=== PATIENT | female | born 1960 | race Caucasian/White ===

== ENCOUNTER → 2023-10-17 15:03 | Outpatient (REF) | payer BC, SELFPAY ==
[2023-11-02 12:10] LABS: HPV, High Risk Not Detected; HPV, High Risk Source Cervical
== END ==
LOC: CPAP 15:03
PROVIDERS: ATTENDING PHYSICIAN Obstetrics & Gynecology Gynecology
DX: Z01.419 Encounter for gynecological examination (general) (routine) without abnormal findings (principal)
CPT/HCPCS: 87624; G0123

== ENCOUNTER → 2023-11-04 13:03 | Outpatient (REF) | payer BC, SELFPAY ==
[2023-11-06 20:26] LABS: C-Peptide 0.1 ng/mL (0.5-3.3)
== END ==
LOC: REG 13:03
PROVIDERS: ATTENDING PHYSICIAN Physician Assistant
DX: E10.9 Type 1 diabetes mellitus without complications (principal)
CPT/HCPCS: 36415; 84681

== ENCOUNTER → 2023-11-27 07:56 | Outpatient (REF) | payer BC, SELFPAY | LOC: WDC 07:56 | PROVIDERS: ATTENDING PHYSICIAN Obstetrics & Gynecology Gynecology; FAMILY PHYSICIAN Student in an Organized Health Care Education/Training Program | DX: Z12.31 Encounter for screening mammogram for malignant neoplasm of breast (principal) | CPT/HCPCS: 77063; 77067 ==

== ENCOUNTER 2023-12-05 17:11 | Outpatient (RCR) | payer BC, SELFPAY | END 2023-12-05 23:59 | disposition home or self-care (01) | LOC: RPT 17:11 | PROVIDERS: ATTENDING PHYSICIAN Student in an Organized Health Care Education/Training Program; FAMILY PHYSICIAN Student in an Organized Health Care Education/Training Program | DX: M48.062 Spinal stenosis, lumbar region with neurogenic claudication (principal); M54.16 Radiculopathy, lumbar region; Z73.6 Limitation of activities due to disability; R26.2 Difficulty in walking, not elsewhere classified; M62.81 Muscle weakness (generalized) | CPT/HCPCS: 97010; 97110; 97112; 97162 ==

== ENCOUNTER → 2024-01-03 | Outpatient (REF) | payer BC, SELFPAY | LOC: DHSLP | PROVIDERS: ATTENDING PHYSICIAN Physician Assistant; FAMILY PHYSICIAN Student in an Organized Health Care Education/Training Program | DX: G47.61 Periodic limb movement disorder (principal); G47.00 Insomnia, unspecified; R06.83 Snoring | CPT/HCPCS: 95810 ==

== ENCOUNTER 2024-01-07 16:22 | Outpatient (RCR) | payer BC, SELFPAY | END 2024-01-07 23:59 | disposition home or self-care (01) | LOC: RPT 16:22 | PROVIDERS: ATTENDING PHYSICIAN Student in an Organized Health Care Education/Training Program; FAMILY PHYSICIAN Student in an Organized Health Care Education/Training Program | DX: M48.062 Spinal stenosis, lumbar region with neurogenic claudication (principal); M54.16 Radiculopathy, lumbar region; Z73.6 Limitation of activities due to disability; R26.2 Difficulty in walking, not elsewhere classified; M62.81 Muscle weakness (generalized); R26.89 Other abnormalities of gait and mobility | CPT/HCPCS: 97010; 97110; 97112; 97140 ==

== ENCOUNTER 2024-01-16 16:42 | Outpatient (RCR) | payer BC, SELFPAY | END 2024-01-16 23:59 | disposition home or self-care (01) | LOC: RPT 16:42 | PROVIDERS: ATTENDING PHYSICIAN Student in an Organized Health Care Education/Training Program; FAMILY PHYSICIAN Student in an Organized Health Care Education/Training Program | DX: M48.062 Spinal stenosis, lumbar region with neurogenic claudication (principal); Z73.6 Limitation of activities due to disability; M54.16 Radiculopathy, lumbar region; M62.81 Muscle weakness (generalized); R26.2 Difficulty in walking, not elsewhere classified; R26.89 Other abnormalities of gait and mobility | CPT/HCPCS: 97010; 97110; 97112 ==

== ENCOUNTER → 2024-02-18 08:49 | Outpatient (REF) | payer BC, SELFPAY ==
[2024-02-18 09:23] LABS: % Basophils 0.5 % (0-2); % Eosinophils 2.5 % (0-6); % Immature Granulocytes 0.4 % (0-0.5); % Lymphocytes 30.2 % (20.5-51.1); % Neutrophils 59.4 % (42.2-75.2); Absolute Eosinophils 0.1 10^3/uL (0-0.7); Absolute Lymphocytes 1.7 10^3/uL (1.2-3.4); Absolute Monocytes 0.4 10^3/uL (0.1-0.6); Absolute Neutrophils 3.3 10^3/uL (1.4-6.5); Hematocrit 41.9 % (37.0-47.0); Hemoglobin 14.1 g/dL (12.0-16.0); Mean Corp Hgb Conc. 33.7 g/dL (33.0-37.0); Mean Corpuscular Hgb 29.2 pg (27.0-31.0); Mean Corpuscular Volume 86.7 fL (81.0-99.0); Nucleated Red Blood Cells % 0 %; Platelet Count 236 10^3/uL (130-400); Red Blood Cell Count 4.83 10^6/uL (4.20-5.40); Red Cell Dist. Width 12.8 % (11.5-14.5); White Blood Cell Count 5.6 10^3/uL (4.8-10.8)
[2024-02-18 09:42] LABS: Glycohemoglobin (HgbA1c) 6.3 % (4.0-5.6)
[2024-02-18 09:52] LABS: ALT (SGPT) 34 U/L (0-35); AST (SGOT) 35 U/L (14-36); Albumin 3.7 g/dl (3.5-5.0); Alkaline Phosphatase 127 U/L (38-126); Blood Urea Nitrogen 17 mg/dl (7-17); Calcium 9.4 mg/dl (8.4-10.2); Carbon Dioxide 27 mmol/L (22-30); Chloride 105 mmol/L (98-107); Glucose 159 mg/dl (70-99); HDL Cholesterol 63 mg/dl; LDL Cholesterol, Calculated 96 mg/dl; Potassium 4.5 mmol/L (3.5-5.1); Sodium 140 mmol/L (135-145); Total Bilirubin 1.4 mg/dl (0.2-1.3); Total Cholesterol 181 mg/dl (50-199); Total Protein 6.4 g/dl (6.3-8.2); Triglyceride 110 mg/dl (10-149); Very Low Density Lipoprotein 22 mg/dl (0-30); eGFR > 60.00
[2024-02-18 10:08] LABS: Free T4 1.06 ng/dl (0.78-2.19)
[2024-02-18 10:22] LABS: TSH 1.62 uIU/ml (0.47-4.68)
[2024-02-18 10:58] LABS: Microalbumin, Random Urine 1.3 mg/dl (0.6-1.7)
== END ==
LOC: REG 08:49
PROVIDERS: ATTENDING PHYSICIAN Physician Assistant
DX: E10.9 Type 1 diabetes mellitus without complications (principal); M54.42 Lumbago with sciatica, left side; E78.5 Hyperlipidemia, unspecified; E03.9 Hypothyroidism, unspecified; Z85.3 Personal history of malignant neoplasm of breast
CPT/HCPCS: 36415; 80053; 80061; 82043; 83036; 84439; 84443; 85025

== ENCOUNTER 2024-03-05 16:50 | Outpatient (RCR) | payer BC, SELFPAY | END 2024-03-05 23:59 | disposition home or self-care (01) | LOC: RPT 16:50 | PROVIDERS: ATTENDING PHYSICIAN Student in an Organized Health Care Education/Training Program; FAMILY PHYSICIAN Student in an Organized Health Care Education/Training Program | DX: M48.062 Spinal stenosis, lumbar region with neurogenic claudication (principal); M54.16 Radiculopathy, lumbar region; Z73.6 Limitation of activities due to disability; M62.81 Muscle weakness (generalized); R26.2 Difficulty in walking, not elsewhere classified; R26.89 Other abnormalities of gait and mobility | CPT/HCPCS: 97110; 97112; 97140; 97530 ==

== ENCOUNTER 2024-03-31 17:20 | Outpatient (RCR) | payer BC, SELFPAY | END 2024-03-31 23:59 | disposition home or self-care (01) | LOC: RPT 17:20 | PROVIDERS: ATTENDING PHYSICIAN Student in an Organized Health Care Education/Training Program; FAMILY PHYSICIAN Student in an Organized Health Care Education/Training Program | DX: M48.062 Spinal stenosis, lumbar region with neurogenic claudication (principal); M54.16 Radiculopathy, lumbar region; Z73.6 Limitation of activities due to disability; M62.81 Muscle weakness (generalized); R26.2 Difficulty in walking, not elsewhere classified; R26.89 Other abnormalities of gait and mobility | CPT/HCPCS: 97110; 97112; 97140 ==

== ENCOUNTER → 2024-04-03 08:46 | Outpatient (REF) | payer BC, SELFPAY | LOC: CLAB 08:46 | PROVIDERS: ATTENDING PHYSICIAN Obstetrics & Gynecology Gynecology | DX: N95.0 Postmenopausal bleeding (principal) | CPT/HCPCS: 88305 ==

== ENCOUNTER → 2024-04-08 09:42 | Outpatient (REF) | payer BC, SELFPAY ==
[2024-04-08 10:35] LABS: % Basophils 0.4 % (0-2); % Eosinophils 1.2 % (0-6); % Immature Granulocytes 0.2 % (0-0.5); % Lymphocytes 21.6 % (20.5-51.1); % Monocytes 6.7 % (1.7-9.3); % Neutrophils 69.9 % (42.2-75.2); Absolute Eosinophils 0.1 10^3/uL (0-0.7); Absolute Lymphocytes 1.8 10^3/uL (1.2-3.4); Absolute Monocytes 0.6 10^3/uL (0.1-0.6); Absolute Neutrophils 5.7 10^3/uL (1.4-6.5); Hematocrit 39.1 % (37.0-47.0); Hemoglobin 13.7 g/dL (12.0-16.0); Mean Corpuscular Hgb 30.8 pg (27.0-31.0); Mean Corpuscular Volume 87.9 fL (81.0-99.0); Mean Platelet Volume 10.1 fL (7.4-10.4); Nucleated Red Blood Cells % 0 %; Platelet Count 216 10^3/uL (130-400); Red Blood Cell Count 4.45 10^6/uL (4.20-5.40); Red Cell Dist. Width 13.1 % (11.5-14.5); White Blood Cell Count 8.2 10^3/uL (4.8-10.8)
[2024-04-08 11:33] LABS: ALT (SGPT) 35 U/L (0-35); AST (SGOT) 29 U/L (14-36); Albumin 3.6 g/dl (3.5-5.0); Alkaline Phosphatase 106 U/L (38-126); Blood Urea Nitrogen 16 mg/dl (7-17); Carbon Dioxide 28 mmol/L (22-30); Chloride 105 mmol/L (98-107); Glucose 93 mg/dl (70-99); Sodium 137 mmol/L (135-145); Total Bilirubin 1.4 mg/dl (0.2-1.3); Total Protein 6.1 g/dl (6.3-8.2); eGFR > 60.00
[2024-04-09 18:37] LABS: CA 27-29 9.5 U/mL (<=39.0)
== END ==
LOC: REG 09:42
PROVIDERS: ATTENDING PHYSICIAN Internal Medicine Hematology & Oncology; FAMILY PHYSICIAN Student in an Organized Health Care Education/Training Program
DX: C50.112 Malignant neoplasm of central portion of left female breast (principal); D70.9 Neutropenia, unspecified
CPT/HCPCS: 36415; 80053; 85025; 86300

== ENCOUNTER → 2024-04-28 10:05 | Outpatient (REF) | payer BC, SELFPAY | LOC: RAD 10:05 | PROVIDERS: ATTENDING PHYSICIAN Obstetrics & Gynecology Gynecology; FAMILY PHYSICIAN Student in an Organized Health Care Education/Training Program | DX: N95.0 Postmenopausal bleeding (principal) | CPT/HCPCS: 76830; 76856 ==

== ENCOUNTER → 2024-05-20 06:33 | Day surgery (SDC) | payer BC, SELFPAY ==
[2024-05-20 07:26] LABS: Glucose - Point of Care 81 mg/dl (70-99)
== END ==
LOC: GI 06:33
PROVIDERS: ATTENDING PHYSICIAN Specialist
DX: Z12.11 Encounter for screening for malignant neoplasm of colon (principal); K63.5 Polyp of colon
CPT/HCPCS: 45380; 88305; 82962

== ENCOUNTER 2024-08-26 08:17 | Emergency (ER) | payer BC, SELFPAY ==
[2024-08-26 08:20] VITALS: BP 127/79
--- NOTE | 2024-08-26 08:45 | ED.GENMED ---
History of Present Illness
General
Chief Complaint: Musculo-Skeletal Complaint
Source: patient
Exam Limitations: none
Time Seen by Provider: 08/26/24 08:39
History of Present Illness
History of Present Illness:
See MDM
Past History
Past History
ED Past Medical History: Cancer (Left breast), IDDM, Hypothyroidism, Other (Migraine headaches, lymphedema left upper extremity) and Other
ED Past Surgical History: Appendectomy, Orthopedic and Other (Left breast lumpectomy September 2015)
Social History
Tobacco: Non-smoker
Alcohol: Occasional
Personal:
Living: with family
Employment: Employed
Family History
Family History: Other (Noncontributory)
Phy Exam
Physical Exam
Physical Exam:
See MDM
Course
Orders/Labs/Results
Orders:
Orders
08/26/24 08:23
Shoulder, Left, Trauma CR [CR Shoulder, Trauma - Left] Urgent
Comment:
Reason For Exam: fall injury
08/26/24 08:44
Sling Left-Treatment ONCE
Ketorolac [Toradol] 30 mg IM NOW STA
Vital Signs
Initial and Last Documented VS:
Initial Vital Signs
Temp Pulse Resp BP Pulse Ox
97.8 F 89 16 127/79 98
08/26/24 08:20 08/26/24 08:20 08/26/24 08:20 08/26/24 08:20 08/26/24 08:20
Last Documented Vital Signs
Temp Pulse Resp BP Pulse Ox
97.8 F 89 16 127/79 98
08/26/24 08:20 08/26/24 08:20 08/26/24 08:20 08/26/24 08:20 08/26/24 08:20
MDM/Problems Addressed
Differential Diagnosis Includes:
HPI and MDM Narrative:
63-year-old female presenting with left shoulder injury. Patient fell coming out of her house. She fell on her left shoulder and she hit her face and her right knee. Patient is unconcerned about her facial injury or her right knee injury. She is
more concerned about her left shoulder. She is having trouble moving her shoulder but denies numbness or tingling.
X-ray was done prior to my evaluation. There appears to be an impacted humeral neck fracture. There is no dislocation. She is neurovascularly intact distally. Will place in shoulder sling. Will refer to orthopedics
Physical exam
General: Well appearing and non-toxic
HEENT: protecting airway
Neck: appears supple
CV: No evidence of cyanosis
Resp: No accessory muscle use
Abd: Non-distended
Extremities: Tenderness to proximal left shoulder. Lymphedema noted in that arm. Distal extremity neurovascularly intact. Mild tenderness to right knee but range of motion intact
Neuro: alert
Psych: Normal affect
Skin: Intact
Problems Addressed including Acute and Chronic Conditions affecting care:
1. Humeral neck fracture
Acuity: acute
Prognosis: stable
Details: Will place in sling. Will refer to orthopedics and discussed pain control
2. [ ]
Acuity: acute
Prognosis: stable
Details:
3. [ ]
Acuity: acute
Prognosis: stable
Details:
4. [ ]
Acuity: acute
Prognosis: stable
Details:
5. [ ]
Acuity:
Prognosis:
Details:
Updates
Differential Diagnosis (but not limited to): Shoulder contusion, humeral neck fracture
Testing considered: Knee x-ray but there is no significant tenderness to suspect fracture
Drug therapy (if applicable): OTC meds, please see d/c instruction regarding Rx drugs
Amount and/or Complexity of Data Reviewed
Clinical info obtained from: Patient
External data reviewed: N/A
Labs I independently reviewed (but not limited to): [ ]
Radiology: X-ray independently reviewed: Left shoulder x-ray concerning for humeral neck fracture
Pulse Ox: not hypoxic
EKG independently reviewed: N/A
Sand Hauler: N/A
Critical Care: N/A
Risk of Complication:
Social Determinants of health: Good social support
Discussed with other providers: N/A
Escalation of Care includes Admit/Obs: After being observed in the Emergency Department, pt stable for discharge.
Occasional wrong word or 'sound a like' substitutions may have occurred due to the inherent limitations of voice recognition software. Read the chart carefully and recognize, using context, where substitutions have occurred.
*Critical Care Note
Total Time (30-74mins, 75-104mins- exclusive of procedures): Not Applicable
ED Attending Note
-
Portions of this chart may have been created with voice recognition software.� Occasional wrong word or��sound alike� substitutions may have occurred due to the inherent limitations of voice recognition software.
Discharge Plan
Departure
Patient Disposition: Home (Routine Discharge)
Date of Disposition: 08/26/24
Time of Disposition: 08:52
Patient with high blood pressure during this ER visit?: No
Discharge Problem:
Fracture of neck of humerus
Instructions: Shoulder or upper arm fracture
Prescriptions:
New
oxycodone 5 mg tablet
5 mg PO Q8H PRN (Reason: Pain) Qty: 14 0RF
No Action
multivitamin [Oau-Rhnbqz-Qxqfu] 1 EACH tablet
1 ea PO DAILY
atorvastatin 20 MG tablet
20 mg PO QPM
Potassium-99 99 MG tablet
99 mg PO HS
levothyroxine 150 MCG tablet
150 mcg PO DAILY
lisinopril 2.5 MG tablet
2.5 mg PO DAILY
magnesium 200 MG tablet
133 mg PO DAILY
cholecalciferol (vitamin D3) [Vitamin D3] 2,000 UNIT capsule
2,000 unit PO DAILY
insulin lispro [Humalog U-100 Insulin] 100 UNIT/ML solution
0 unit SC .PUMP
Patient Comments:
pump dictates insulin amt based on serum glucose
loratadine 10 MG tablet
10 mg PO DAILY
anastrozole 1 MG tablet
1 mg PO DAILY
melatonin 1 MG tablet
5 mg PO HS
pseudoephedrine HCl 60 MG tablet
30 mg PO DAILY
Zync
5 mg PO DAILY
erythromycin 500 mg Tablet
500 mg PO TID
famotidine 20 mg Tablet
20 mg PO DAILY
Referrals:
Adriano Blunt MD [Active] -
Activity Restrictions/Additional Instructions:
Please return for any worsening symptoms.
You may return at any time if you have further concerns.
Please make an appointment to see the orthopedist.
You were given a prescription for narcotics. If you require this pain medicine, please take a daily [id number] stool softener to avoid constipation.
Thank you for choosing [facility].
Interventions
Interventions:
*Risk Screen - Suicide Last Done: 08/26/24 08:21
*Neglect/Abuse Screening Last Done: 08/26/24 08:21
*ED COVID-19 Vaccine History Last Done: 08/26/24 08:41
ED-Musculoskeletal Assessment Last Done: 08/26/24 08:41
Discharge Date and Time
Print Language: [id number]
[2024-08-26] MEDS: TORADOL 30 MG IM (09:00)
== END 2024-08-26 09:42 | disposition home or self-care (01) ==
LOC: EMR 08:17
PROVIDERS: EMERGENCY PHYSICIAN Student in an Organized Health Care Education/Training Program; FAMILY PHYSICIAN Student in an Organized Health Care Education/Training Program
DX: S42.212A Unspecified displaced fracture of surgical neck of left humerus, initial encounter for closed fracture (principal); W19.XXXA Unspecified fall, initial encounter; E03.9 Hypothyroidism, unspecified; E11.9 Type 2 diabetes mellitus without complications; Z90.49 Acquired absence of other specified parts of digestive tract
CPT/HCPCS: 99283; 96372; 73030

== ENCOUNTER 2024-10-09 15:14 | Outpatient (RCR) | payer BC, SELFPAY | END 2024-10-09 23:59 | disposition home or self-care (01) | LOC: RPT 15:14 | PROVIDERS: ATTENDING PHYSICIAN Physician Assistant Surgical; FAMILY PHYSICIAN Student in an Organized Health Care Education/Training Program | DX: S42.202D Unspecified fracture of upper end of left humerus, subsequent encounter for fracture with routine healing (principal); Z73.6 Limitation of activities due to disability; M62.81 Muscle weakness (generalized); W00.0XXD Fall on same level due to ice and snow, subsequent encounter; Z85.3 Personal history of malignant neoplasm of breast | CPT/HCPCS: 97010; 97110; 97112; 97140; 97162; 97530 ==

== ENCOUNTER → 2024-10-20 08:32 | Outpatient (REF) | payer BC, SELFPAY ==
[2024-10-20 11:02] LABS: % Basophils 0.8 % (0-2); % Eosinophils 2.3 % (0-6); % Immature Granulocytes 0.5 % (0-0.5); % Lymphocytes 28.6 % (20.5-51.1); % Neutrophils 59.8 % (42.2-75.2); Absolute Basophils 0.1 10^3/uL (0-0.2); Absolute Eosinophils 0.2 10^3/uL (0-0.7); Absolute Lymphocytes 1.8 10^3/uL (1.2-3.4); Absolute Monocytes 0.5 10^3/uL (0.1-0.6); Absolute Neutrophils 3.8 10^3/uL (1.4-6.5); Hematocrit 40.7 % (37.0-47.0); Hemoglobin 13.4 g/dL (12.0-16.0); Mean Corp Hgb Conc. 32.9 g/dL (33.0-37.0); Mean Corpuscular Hgb 29.7 pg (27.0-31.0); Mean Corpuscular Volume 90.2 fL (81.0-99.0); Mean Platelet Volume 10.3 fL (7.4-10.4); Nucleated Red Blood Cells % 0 %; Platelet Count 246 10^3/uL (130-400); Red Blood Cell Count 4.51 10^6/uL (4.20-5.40); Red Cell Dist. Width 13.4 % (11.5-14.5); White Blood Cell Count 6.4 10^3/uL (4.8-10.8)
[2024-10-20 12:01] LABS: ALT (SGPT) 43 U/L (0-35); AST (SGOT) 38 U/L (14-36); Albumin 3.7 g/dl (3.5-5.0); Alkaline Phosphatase 144 U/L (38-126); Blood Urea Nitrogen 20 mg/dl (7-17); Calcium 9.1 mg/dl (8.4-10.2); Carbon Dioxide 27 mmol/L (22-30); Chloride 104 mmol/L (98-107); Glucose 183 mg/dl (70-99); Potassium 4.8 mmol/L (3.5-5.1); Sodium 138 mmol/L (135-145); Total Bilirubin 0.9 mg/dl (0.2-1.3); Total Protein 6.2 g/dl (6.3-8.2); eGFR > 60.00
[2024-10-21 14:47] LABS: CA 27-29 11.9 U/mL (<=39.0)
== END ==
LOC: REG 08:32
PROVIDERS: ATTENDING PHYSICIAN Internal Medicine Hematology & Oncology; FAMILY PHYSICIAN Student in an Organized Health Care Education/Training Program
DX: C50.112 Malignant neoplasm of central portion of left female breast (principal); D70.9 Neutropenia, unspecified
CPT/HCPCS: 36415; 80053; 85025; 86300

== ENCOUNTER 2024-11-05 15:26 | Outpatient (RCR) | payer BC, SELFPAY | END 2024-11-05 23:59 | disposition home or self-care (01) | LOC: RPT 15:26 | PROVIDERS: ATTENDING PHYSICIAN Physician Assistant Surgical; FAMILY PHYSICIAN Student in an Organized Health Care Education/Training Program | DX: S42.202D Unspecified fracture of upper end of left humerus, subsequent encounter for fracture with routine healing (principal); Z73.6 Limitation of activities due to disability; M62.81 Muscle weakness (generalized); W00.0XXD Fall on same level due to ice and snow, subsequent encounter; W18.39XD Other fall on same level, subsequent encounter; Z85.3 Personal history of malignant neoplasm of breast | CPT/HCPCS: 97010; 97110; 97112; 97140 ==

== ENCOUNTER → 2024-12-01 07:52 | Outpatient (REF) | payer BC, SELFPAY | LOC: WDC 07:52 | PROVIDERS: ATTENDING PHYSICIAN Obstetrics & Gynecology Gynecology; FAMILY PHYSICIAN Student in an Organized Health Care Education/Training Program | DX: Z12.31 Encounter for screening mammogram for malignant neoplasm of breast (principal) | CPT/HCPCS: 77063; 77067 ==

== ENCOUNTER 2024-12-07 15:30 | Outpatient (RCR) | payer BC, SELFPAY | END 2024-12-07 23:59 | disposition home or self-care (01) | LOC: RPT 15:30 | PROVIDERS: ATTENDING PHYSICIAN Physician Assistant Surgical; FAMILY PHYSICIAN Student in an Organized Health Care Education/Training Program | DX: S42.202D Unspecified fracture of upper end of left humerus, subsequent encounter for fracture with routine healing (principal); Z73.6 Limitation of activities due to disability; M62.81 Muscle weakness (generalized); W00.0XXD Fall on same level due to ice and snow, subsequent encounter; W18.39XD Other fall on same level, subsequent encounter; Z85.3 Personal history of malignant neoplasm of breast | CPT/HCPCS: 97010; 97110; 97112; 97140 ==

== ENCOUNTER → 2024-12-24 09:35 | Outpatient (REF) | payer BC, SELFPAY ==
[2024-12-24 11:31] LABS: ALT (SGPT) 36 U/L (0-35); AST (SGOT) 29 U/L (14-36); Albumin 3.6 g/dl (3.5-5.0); Alkaline Phosphatase 120 U/L (38-126); Blood Urea Nitrogen 19 mg/dl (7-17); Calcium 9.2 mg/dl (8.4-10.2); Carbon Dioxide 29 mmol/L (22-30); Chloride 106 mmol/L (98-107); Direct Bilirubin 0.2 mg/dl (0.0-0.4); Glucose 102 mg/dl (70-99); HDL Cholesterol 65 mg/dl; LDL Cholesterol, Calculated 73 mg/dl; Potassium 4.4 mmol/L (3.5-5.1); Sodium 140 mmol/L (135-145); Total Bilirubin 1.2 mg/dl (0.2-1.3); Total Cholesterol 152 mg/dl (50-199); Total Protein 6.2 g/dl (6.3-8.2); Triglyceride 74 mg/dl (10-149); Very Low Density Lipoprotein 14 mg/dl (0-30); eGFR > 60.00
[2024-12-24 11:32] LABS: Glycohemoglobin (HgbA1c) 6.8 % (4.0-5.6)
== END ==
LOC: REG 09:35
PROVIDERS: ATTENDING PHYSICIAN Nurse Practitioner Adult Health; FAMILY PHYSICIAN Student in an Organized Health Care Education/Training Program; REFERRING PHYSICIAN Internal Medicine Hematology & Oncology
DX: E78.5 Hyperlipidemia, unspecified (principal); E10.9 Type 1 diabetes mellitus without complications; C50.112 Malignant neoplasm of central portion of left female breast; D70.9 Neutropenia, unspecified
CPT/HCPCS: 36415; 80053; 80061; 82248; 83036

== ENCOUNTER 2025-01-05 15:54 | Outpatient (RCR) | payer BC, SELFPAY | END 2025-01-05 23:59 | disposition home or self-care (01) | LOC: RPT 15:54 | PROVIDERS: ATTENDING PHYSICIAN Physician Assistant Surgical; FAMILY PHYSICIAN Student in an Organized Health Care Education/Training Program | DX: S42.202D Unspecified fracture of upper end of left humerus, subsequent encounter for fracture with routine healing (principal); Z73.6 Limitation of activities due to disability; M62.81 Muscle weakness (generalized); W00.0XXD Fall on same level due to ice and snow, subsequent encounter; Z85.3 Personal history of malignant neoplasm of breast; W18.39XD Other fall on same level, subsequent encounter | CPT/HCPCS: 97110; 97112; 97140 ==

== ENCOUNTER → 2025-01-09 07:55 | Outpatient (REF) | payer BC, SELFPAY | LOC: MRI 3T 07:55 | PROVIDERS: ATTENDING PHYSICIAN Physician Assistant Surgical; FAMILY PHYSICIAN Student in an Organized Health Care Education/Training Program | DX: M70.61 Trochanteric bursitis, right hip (principal); M76.01 Gluteal tendinitis, right hip | CPT/HCPCS: 73721 ==

== ENCOUNTER 2025-01-11 15:39 | Outpatient (RCR) | payer BC, SELFPAY | END 2025-01-12 07:36 | disposition home or self-care (01) | LOC: RPT 15:39 | PROVIDERS: ATTENDING PHYSICIAN Physician Assistant Surgical; FAMILY PHYSICIAN Student in an Organized Health Care Education/Training Program | DX: S42.202D Unspecified fracture of upper end of left humerus, subsequent encounter for fracture with routine healing (principal); Z73.6 Limitation of activities due to disability; M62.81 Muscle weakness (generalized); W00.0XXD Fall on same level due to ice and snow, subsequent encounter; Z85.3 Personal history of malignant neoplasm of breast; W18.39XD Other fall on same level, subsequent encounter | CPT/HCPCS: 97010; 97112; 97140 ==

== ENCOUNTER 2025-03-01 13:17 | Outpatient (RCR) | payer BC, SELFPAY | END 2025-03-01 23:59 | disposition home or self-care (01) | LOC: RPT 13:17 | PROVIDERS: ATTENDING PHYSICIAN Physician Assistant Surgical; FAMILY PHYSICIAN Student in an Organized Health Care Education/Training Program | DX: M16.0 Bilateral primary osteoarthritis of hip (principal); M70.61 Trochanteric bursitis, right hip; M76.01 Gluteal tendinitis, right hip; Z73.6 Limitation of activities due to disability; M25.551 Pain in right hip | CPT/HCPCS: 97110; 97112; 97140; 97161 ==

== ENCOUNTER 2025-03-16 16:15 | Outpatient (RCR) | payer BC, SELFPAY | END 2025-03-16 23:59 | disposition home or self-care (01) | LOC: RPT 16:15 | PROVIDERS: ATTENDING PHYSICIAN Physician Assistant Surgical; FAMILY PHYSICIAN Student in an Organized Health Care Education/Training Program | DX: M16.0 Bilateral primary osteoarthritis of hip (principal); M70.61 Trochanteric bursitis, right hip; M76.01 Gluteal tendinitis, right hip; Z73.6 Limitation of activities due to disability; M25.551 Pain in right hip | CPT/HCPCS: 97110 ==

== ENCOUNTER → 2025-04-16 10:51 | Outpatient (REF) | payer BC, SELFPAY ==
[2025-04-16 12:22] LABS: Hematocrit 41.5 % (37.0-47.0); Hemoglobin 13.7 g/dL (12.0-16.0); Mean Corp Hgb Conc. 33.0 g/dL (33.0-37.0); Mean Corpuscular Volume 90.4 fL (81.0-99.0); Nucleated Red Blood Cells % 0 %; Platelet Count 246 10^3/uL (130-400); Red Cell Dist. Width 13.3 % (11.5-14.5)
[2025-04-16 14:33] LABS: ALT (SGPT) 68 U/L (0-35); AST (SGOT) 45 U/L (14-36); Albumin 3.8 g/dl (3.5-5.0); Alkaline Phosphatase 124 U/L (38-126); Blood Urea Nitrogen 15 mg/dl (7-17); Calcium 9.2 mg/dl (8.4-10.2); Carbon Dioxide 28 mmol/L (22-30); Chloride 106 mmol/L (98-107); Glucose 132 mg/dl (70-99); Potassium 4.4 mmol/L (3.5-5.1); Sodium 138 mmol/L (135-145); Total Protein 6.4 g/dl (6.3-8.2); eGFR > 60.00
[2025-04-19 03:44] LABS: CA 27-29 14.2 U/mL (<=39.0)
== END ==
LOC: REG 10:51
PROVIDERS: ATTENDING PHYSICIAN Internal Medicine Hematology & Oncology; FAMILY PHYSICIAN Student in an Organized Health Care Education/Training Program
DX: C50.112 Malignant neoplasm of central portion of left female breast (principal); D70.9 Neutropenia, unspecified
CPT/HCPCS: 36415; 80053; 85025; 86300